=== PATIENT | female | born 1985 ===

== ENCOUNTER 2018-03-03 21:53 | Outpatient (REF) | payer MEDICAID, SELFPAY ==
[2018-03-03 22:32] LABS: Cholesterol 191 mg/dL (50-200); HDL Cholesterol 92 mg/dL (40-60); LDL CHOLESTEROL 88 mg/dL (<100); Triglyceride 45 mg/dL (30-150)
== END 2018-03-03 22:13 ==
LOC: NCHCN 21:53
PROVIDERS: Referring Provider Family Medicine; Visit Provider Family Medicine
DX: Z13.220 Encounter for screening for lipoid disorders (principal)
CPT/HCPCS: 80061; 83721

== ENCOUNTER 2020-05-10 14:57 | Outpatient (REF) | payer OTHER, SELFPAY ==
[2020-05-12 23:57] LABS: COVID-19 RT-PCR Result NEGATIVE (Negative)
== END 2020-05-10 15:17 ==
LOC: NCHCN 14:57
PROVIDERS: PCP Nurse Practitioner Community Health; Visit Provider Nurse Practitioner Community Health
DX: R05 Cough (principal)
CPT/HCPCS: U0003